=== PATIENT | female | born 1985 | race Caucasian/White ===

== ENCOUNTER 2019-03-31 22:13 | Emergency (ER) | payer SELFPAY ==
[~2019-03-31] VITALS: Ht 162.6 cm; Wt 59.0 kg
[2019-03-31 22:26] VITALS: BP 121/66
[2019-03-31] MEDS ORDERED: CLIN150C14 PO (23:11)
--- NOTE | 2019-03-31 23:12 | PHYS DOC ---
Past Medical History Past Medical History: Asthma (SAM DONALDSON APRN) Past Surgical History: No Surgical History (SAM DONALDSON APRN) Alcohol Use: None Drug Use: None (SAM DONALDSON APRN) Adult General Chief Complaint Chief Complaint: ABSCESS HPI HPI Patient is a 34 year old female, accompanied by her significant other, who presents to the emergency department with complaints of a sore, swollen, red, tender area to her right forehead for the last 4 days. Patient states that she squeezed a small amount of pus out of it yesterday. 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 Patient denies any fever, cough, vision changes, shortness of breath, nausea, vomiting, diarrhea, abdominal pain, ear pain, sore throat, shortness of breath, wheezing, chest pain, or palpitations. She currently rates pain a 10 out of 10 on the pain scale and describes it as pressure, pain increases that the area is touched, there are no alleviating factors. All other ROS is neg unless otherwise noted in HPI. (SAM DONALDSON APRN) Review of Systems Review of Systems See Above (SAM DONALDSON APRN) Current Medications Current Medications Current Medications Medications (Trade) Dose Ordered Sig/Noy Start Time Stop Time Status Last Admin Dose Admin Lidocaine HCl (Xylocaine-Mpf 1% 2ml Vial) 4 ml 1X ONCE 03/31/19 23:15 03/31/19 23:16 DC 03/31/19 23:06 4 ML (WHIT SPIVEY MD) Allergies Allergies Allergies Coded Allergies Type Severity Reaction Last Updated Verified No Known Drug Allergies 03/31/19 No (WHIT SPIVEY MD) Physical Exam Physical Exam See Above Constitutional: Well developed, well nourished, no acute distress, non-toxic appearance. [] HENT: Normocephalic, atraumatic, bilateral external ears normal, oropharynx mo ist, no oral exudates, nose normal. [] Eyes: PERRLA, EOMI, conjunctiva normal, no discharge. [] Neck: Normal range of motion, no stridor. [] Cardiovascular:Heart rate regular rhythm Lungs & Thorax: Respirations even and unlabored, no retractions, no respiratory distress Skin: Warm, dry, 1.5 cm diameter, erythemic, warm, swollen area with central pustule noted to right forehead consistent with cutaneuous abscess Back: No tenderness Extremities: No cyanosis, ROM intact, no edema. [] Neurologic: Alert and oriented X 3, no focal deficits noted. [] Psychologic: Affect normal, judgement normal, mood normal. [] (SAM DONALDSON APRN) Current Patient Data Vital Signs Vital Signs Date Time Temp Pulse Resp B/P (MAP) Pulse Ox O2 Delivery O2 Flow Rate FiO2 03/31/19 22:26 97.5 84 18 121/66 (84) 100 Room Air 97.5 (WHIT SPIVEY MD) EKG EKG [] (SAM DONALDSON APRN) Radiology/Procedures Radiology/Procedures [] (SAM DONALDSON APRN) Course & Med Decision Making Course & Med Decision Making Pertinent Labs and Imaging studies reviewed. (See chart for details) [] (SAM DONALDSON APRN) Course & Med Decision Making Staff Physician Addendum: I was working in the ER during the course of this patient's visit. I was available for consultation as needed, but I was not directly involved in the care of this patient. (WHIT SPIVEY MD) Dragon Disclaimer Dragon Disclaimer This electronic medical record was generated, in whole or in part, using a voice recognition dictation system. (SAM DONALDSON APRN) Departure Departure Impression: Primary Impression: Abscess of forehead Disposition: 01 HOME, SELF-CARE Condition: STABLE Referrals: NO PCP (PCP) Patient Instructions: Abscess, Care After, Abscess, [id number] Additional Instructions: Fill the prescription and use as directed. Tylenol or ibuprofen as needed for pain. Apply warm, moist, heat to the area for 10-15 minutes every 1-2 hours while awake tonight and tomorrow. Follow up with your primary care doctor in 1-2 days, return to the ER if you develop a fever, or symptoms worsen. Scripts Clindamycin Hcl (CLINDAMYCIN HCL) 150 Mg Capsule 450 MG PO TID for 7 Days, #63 CAP 0 Refills Prov: SAM DONALDSON APRN 03/31/19 Incision and Drainage Incision and Drainage : Site: right forehead Blade Size: 11 I & D Procedure: betadine prep Progress 1% lidocaine was injected into the abscess site, a small incision was made over the pustule and a moderate amount of bloody and purulent drainage was expressed. minimal blood loss. Pt tolerated procedure well. (SAM DONALDSON APRN) SAM DONALDSON APRN Mar 31, 2019 23:12 WHIT SPIVEY MD Apr 01, 2019 04:52
[2019-03-31] MEDS ORDERED: LIDOCAINE 1% PF 2 ML VIAL. INJ ONE (23:15)
== END 2019-03-31 23:20 | disposition home or self-care (01) ==
LOC: ER 22:13
DX: L02.01 Cutaneous abscess of face (principal); J45.909 Unspecified asthma, uncomplicated
CPT/HCPCS: 10060; 99283